=== PATIENT | male | born 1980 | race Caucasian/White ===

== ENCOUNTER 2017-05-12 02:35 | Emergency (ER) | payer OTHER ==
[~2017-05-12] VITALS: Ht 182.9 cm; Wt 86.2 kg
[2017-05-12 02:48] VITALS: BP 170/100
--- NOTE | 2017-05-12 03:09 | Emergency Room Report ---
History of Present Illness General Chief Complaint: Alcohol Intoxication Source: Patient Present Illness HPI Patient presents by paramedics and police department Patient was reported to be acting strangely, dancing in the hallway and appeared to be under the influence possibly alcohol versus other such as drugs Upon arrival the patient is cooperative Awake alert Speaking clearly Patient gives a report that he is the one who contacted the police Because he did not feel safe with his roommate He does admit to drinking alcohol earlier at approximately 1 in the afternoon At this time denies any headache denies any chest pain Denies any other medical complaints Patient states that he wants to go home When asking if he felt safe going home he reports that his friend/roommate has left and he does feel safe The police also concerned that the roommate/friend did leave Patient never made any suicidal or homicidal threats The police department have not put the patient on a 5150 , Allergies: Coded Allergies: No Known Allergies (Unverified , 05/12/17) Patient History Past Medical History: see triage record Pertinent Family History: none Reviewed Nursing Documentation: PMH: Agreed, PSxH: Agreed Nursing Documentation-PMH Past Medical History: No Stated History Review of Systems All Other Systems: negative except mentioned in HPI Physical Exam Vital Signs Date Time Temp Pulse Resp B/P (MAP) Pulse Ox O2 Delivery O2 Flow Rate FiO2 05/12/17 02:33 97.9 120 14 170/100 98 Room Air 97.9 Sp02 EP Interpretation: reviewed, normal General Appearance: no apparent distress Head: normocephalic, atraumatic Eyes: bilateral eye PERRL, bilateral eye EOMI ENT: normal pharynx Neck: supple, thyroid normal Respiratory: lungs clear Cardiovascular #1: regular rate, rhythm Gastrointestinal: non tender, soft Musculoskeletal: normal inspection Neurologic: alert, oriented x3, responsive, photo offset printer III-XII nml as tested Skin: other - Mild erythema and swelling to the right wrist and dorsal hand Lymphatic: no adenopathy Medical Decision Making Diagnostic Impression: Primary Impression: Drug abuse ER Course Patient here denies any intentional drug abuse He did appear mildly agitated initially, he has continued to become more calm and cooperative At this time patient refuses any further testing He refused any imaging of his hand After discussion with Police Department patient has not been put on a 5150 he is not a danger to himself or others Patient also does not have any reports or concerns of homicidal or suicidal thought Patient analiantly refusing any other testing and requesting to go home Patient was recommended to have further testing to evaluate the specifics of possible drug ingestion, also imaging of the hand, however the patient continues to refuse, and is leaving AGAINST MEDICAL ADVICE Last Vital Signs Date Time Temp Pulse Resp B/P (MAP) Pulse Ox O2 Delivery O2 Flow Rate FiO2 05/12/17 02:33 97.9 120 14 170/100 98 Room Air 97.9 Status: improved Disposition: AGAINST MEDICAL ADVICE Condition: Improved KIARRA RAWLS D.O. May 12, 2017 03:09
== END 2017-05-12 02:48 | disposition left against medical advice (07) ==
LOC: EDBD 02:35 → EMR 02:48
DX: F19.10 Other psychoactive substance abuse, uncomplicated (principal); F10.129 Alcohol abuse with intoxication, unspecified
CPT/HCPCS: 99283